=== PATIENT | male | born 1965 | race African-American/Black ===

== ENCOUNTER 2021-07-22 20:42 | Emergency (ER) | payer OTHER ==
[~2021-07-22] VITALS: Ht 170.2 cm; Wt 98.0 kg
[2021-07-22] MEDS ORDERED: SULF1TAB45 PO (22:10)
[2021-07-22] MEDS ORDERED: METR500T PO (22:10)
[2021-07-22] MEDS ORDERED: sulfamethoxazole/trimethoprim DS (800/160mg) tablet PO ONE (22:10)
[2021-07-22] MEDS ORDERED: metroNIDAZOLE 500mg tablet PO ONE (22:10)
--- NOTE | 2021-07-22 22:10 | NUR ---
PT C/O PERIRECTAL ABSCESS; PT HAS PAIN AND REDNESS/TENDERNESS THERE TIMES SEVERAL DAYS BUT IS IN NAD; AMBULATORY; HAS HAD THIS HAPPEN SEVERAL TIMES AND IT HAS CLEARED UP WITH ABX HE STATES; REFUSING CT FOR FURTHER DX; MD NOTIFIED. PT HEART RATE WNL AND LUNG SOUNDS ARE CLEAR; NO S/SX OF SEPSIS OR DISTRESS.
[2021-07-22 22:13] LABS: BASOPHILS % (AUTO) 0.5 % (0-1); EOSINOPHILS # (AUTO) 0.3 X10'3 (0-0.9); EOSINOPHILS % (AUTO) 5.1 % (0-6); HEMATOCRIT 37.2 % (42.0-52.0); HEMOGLOBIN 12.8 g/dl (14.0-17.9); LYMPHOCYTES # (AUTO) 1.3 X10'3 (1.1-4.8); LYMPHOCYTES % (AUTO) 20.6 % (21-51); MEAN CORPUSCULAR HGB CONC 34.3 g/dL (33.0-36.5); MEAN CORPUSCULAR VOLUME 81.7 FL (78-98); MEAN PLATELET VOLUME 7.5 FL (7.4-10.4); MONOCYTES % (AUTO) 16.1 % (2-12); NEUTROPHILS # (AUTO) 3.5 X10'3 (1.8-7.7); NEUTROPHILS % (AUTO) 57.7 % (42-75); PLATELET COUNT 296 X10'3 (140-440); RED BLOOD COUNT 4.55 X10'6 (4.70-6.10); RED CELL DISTRIBUTION WIDTH 13.9 % (11.5-14.5); WHITE BLOOD COUNT 6.1 X10'3 (4.5-11.0)
[2021-07-22 22:22] VITALS: BP 141/89
[2021-07-22 22:23] LABS: ALANINE AMINOTRANSFERASE 36 U/L (12-78); ALBUMIN 3.7 G/DL (3.4-5.0); ALKALINE PHOSPHATASE 67 IU/L (46-116); ANION GAP 8 (8-16); ASPARTATE AMINO TRANSFERASE 19 U/L (10-37); BILIRUBIN,TOTAL 0.5 MG/DL (0.1-1.0); BLOOD UREA NITROGEN 16 MG/DL (7-18); BUN/CREATININE RATIO 11.3 (5.4-32.0); CALCIUM 8.7 MG/DL (8.5-10.1); CHLORIDE 108 MMOL/L (99-107); CREATININE 1.41 MG/DL (0.60-1.10); GLUCOSE 96 MG/DL (70-104); SODIUM 144 MMOL/L (135-145); TOTAL CARBON DIOXIDE 27.9 MMOL/L (24-32); TOTAL PROTEIN 7.3 G/DL (6.4-8.2); eGFR 63 ML/MIN
== END 2021-07-22 22:53 | disposition left against medical advice (07) ==
LOC: ER 20:43
DX: J45.909 Unspecified asthma, uncomplicated (principal); Z88.1 Allergy status to other antibiotic agents; Z79.899 Other long term (current) drug therapy
CPT/HCPCS: 80053; 85025; 99283; J3490